=== PATIENT | male | born 1970 | race Caucasian/White ===

== ENCOUNTER → 2023-08-24 16:27 | Outpatient (REF) | payer OTHER, SELFPAY | LOC: RAD 16:27 | PROVIDERS: ATTENDING PHYSICIAN Family Medicine | DX: J45.40 Moderate persistent asthma, uncomplicated (principal) | CPT/HCPCS: 71250 ==

== ENCOUNTER → 2023-12-12 06:44 | Outpatient (REF) | payer OTHER, SELFPAY | LOC: RAD 06:44 | PROVIDERS: ATTENDING PHYSICIAN Family Medicine | DX: E78.00 Pure hypercholesterolemia, unspecified (principal) | CPT/HCPCS: 93880 ==

== ENCOUNTER → 2024-03-21 08:56 | Outpatient (REF) | payer OTHER, SELFPAY | LOC: RSP 08:56 | PROVIDERS: ATTENDING PHYSICIAN Internal Medicine Critical Care Medicine | DX: J45.30 Mild persistent asthma, uncomplicated (principal) | CPT/HCPCS: 94727; 94729; 88738; 94010 ==

== ENCOUNTER 2024-04-05 08:49 | Emergency (ER) | payer OTHER, SELFPAY ==
[2024-04-05 09:06] VITALS: BP 155/95
--- NOTE | 2024-04-05 09:51 | ED.GENMED ---
History of Present Illness
General
Chief Complaint: Fall
Source: patient
Time Seen by Provider: 04/05/24 09:17
History of Present Illness
History of Present Illness:
54-year-old male presenting to the emergency for evaluation of right wrist and foot injury stating that he was standing on a 2 foot ladder when he accidentally tripped falling onto the affected areas. Patient states the wrist is what is bothering
him most. Denies any head injury, loss consciousness or any other extremity related concerns. Patient is right-hand dominant.
Past History
Past History
ED Past Medical History: HTN and Hypercholesterolemia
ED Past Surgical History: Orthopedic
Social History
Tobacco: Non-smoker
Alcohol: None
Drug: None
Personal:
Living: with family
Employment: Employed
Review of Systems
Review of Systems
All Other Systems: ROS reviewed and negative except as documented in HPI and ROS
Phy Exam
Physical Exam
Physical Exam:
GENERAL: Alert , in no apparent distress
EYE: conjunctiva clear
Head: Normocephalic atraumatic
NECK: Supple,
ENT: mmm.
LUNGS: no acute respiratory distress
NEUROLOGICAL: Alert and oriented
SKIN: Warm and dry, skin intact.
MUSCULOSKELETAL: Right Hand/Wrist: STS over the dorsum of the hand with ttp over mid carpal bones. ROM limited 2/2 pain, easily palpable radial pulse. CR < 2 sec. Sensation grossly intact to light touch. Remainder of extremity is WNL. Right foot:
No obvious deformity. No focal areas of ttp
PSYCH: Normal and appropriate interaction.
Scores
Heart Failure Risk
Heart Failure Risk Score: Not Applicable
Heart Score for Chest Pain Patients
STEMI patient?: Not applicable
Withdrawal Assessment of Alcohol
Withdrawal Assessment Completed?: Not applicable
Course
Orders/Labs/Results
Orders:
Orders
04/05/24 09:10
Foot, Right 3 View [CR Foot - Right Min 3 Views] Urgent
Comment:
Reason For Exam: injury
Wrist, Right 3 Views [CR Wrist - Right Min 3 Views] Urgent
Comment:
Reason For Exam: injury
Vital Signs
Initial and Last Documented VS:
Initial Vital Signs
Temp Pulse Resp BP Pulse Ox
98.2 F 81 16 155/95 97
04/05/24 09:06 04/05/24 09:06 04/05/24 09:06 04/05/24 09:06 04/05/24 09:06
Last Documented Vital Signs
Temp Pulse Resp BP Pulse Ox
97.8 F 91 15 137/78 97
04/05/24 10:21 04/05/24 10:21 04/05/24 10:21 04/05/24 10:21 04/05/24 10:21
Procedures
Splinting/Sling Placement
Right Wrist:
Procedure completed by: Amrita
Pre-splint extermity exam: neurovascular intact
Type of splint: volar
Splint material: other (3in orthoglass)
Splint checked by provider?: Yes
Normal distal neurovascular exam?: Yes
MDM/Problems Addressed
Differential Diagnosis Includes:
sprain, contusion, fracture
MDM/Problems Addressed:
54-year-old male presenting to the ER for evaluation of right foot and wrist injuries. No other injuries sustained an accidental fall. X-rays were ordered from triage with the x-ray of the right wrist showing a fracture of a carpal bone.
Difficult to discern which carpal bone as the avulsive injury. Splint placed as above. Patient will require orthopedics follow-up. X-ray of the right foot does not show any acute fractures. There are couple ossifications that appear chronic.
NSAIDs/Tylenol as needed for pain. Information for orthopedic sided. Patient stable for discharge home.
*Radiology
Radiology exam reviewed: preliminary read by ED provider (carpal bone fracture right wrist, no fx foot)
*Pulse Oximetry
Patient hypoxic: no
*Critical Care Note
Total Time (30-74mins, 75-104mins- exclusive of procedures): Not Applicable
ED Attending Note
-
Portions of this chart may have been created with voice recognition software.� Occasional wrong word or��sound alike� substitutions may have occurred due to the inherent limitations of voice recognition software.
Discharge Plan
Departure
Patient Disposition: Home (Routine Discharge)
Date of Disposition: 04/05/24
Time of Disposition: 09:51
Patient with high blood pressure during this ER visit?: Yes
Discharge Problem:
Fracture of carpal bone of right wrist, Right foot sprain
Instructions: Common Wrist Injuries ED
Referrals:
Tarny Nunez I., DO [Active] - (Ortho - Please call for appointment)
Kathrin De Jesus MD [Family Provider] -
Interventions
Interventions:
*Risk Screen - Suicide Last Done: 04/05/24 09:06
*General Assessment Last Done: 04/05/24 09:06
*Neglect/Abuse Screening Last Done: 04/05/24 09:06
ED- Fall Risk Assessment Last Done: 04/05/24 10:21
*ED COVID-19 Vaccine History Last Done: 04/05/24 10:21
*Nursing Disposition Last Done: 04/05/24 10:21
ED-Musculoskeletal Assessment Last Done: 04/05/24 10:20
ED- Neurological Assessment Last Done: 04/05/24 10:20
ED-Skin Assessment Last Done: 04/05/24 10:20
Discharge Date and Time
Discharge Date/Time: 04/05/24 10:22
Print Language: ROMANIAN
[2024-04-05 10:21] VITALS: BP 137/78
== END 2024-04-05 10:22 | disposition home or self-care (01) ==
LOC: EMR 08:49
PROVIDERS: EMERGENCY PHYSICIAN Student in an Organized Health Care Education/Training Program; FAMILY PHYSICIAN Family Medicine
DX: S62.101A Fracture of unspecified carpal bone, right wrist, initial encounter for closed fracture (principal); S93.601A Unspecified sprain of right foot, initial encounter; W01.0XXA Fall on same level from slipping, tripping and stumbling without subsequent striking against object, initial encounter; I10 Essential (primary) hypertension; E78.00 Pure hypercholesterolemia, unspecified
CPT/HCPCS: 99283; 29125; 73110; 73630

== ENCOUNTER 2024-08-17 00:49 | Observation (INO) | payer OTHER, SELFPAY ==
[2024-08-16 16:16] VITALS: BP 145/101
[2024-08-16 16:38] LABS: % Basophils 0.3 % (0-2); % Eosinophils 0.2 % (0-6); % Immature Granulocytes 0.2 % (0-0.5); % Lymphocytes 11.1 % (20.5-51.1); % Monocytes 7.8 % (1.7-9.3); % Neutrophils 80.4 % (42.2-75.2); Absolute Lymphocytes 1.1 10^3/uL (1.2-3.4); Absolute Monocytes 0.8 10^3/uL (0.1-0.6); Hemoglobin 16.6 g/dL (13.0-18.0); Mean Corp Hgb Conc. 33.9 g/dL (33.0-37.0); Mean Corpuscular Hgb 28.3 pg (27.0-31.0); Mean Corpuscular Volume 83.5 fL (80.0-94.0); Mean Platelet Volume 9.8 fL (7.4-10.4); Nucleated Red Blood Cells % 0 % (-); Platelet Count 245 10^3/uL (130-400); Red Blood Cell Count 5.87 10^6/uL (4.70-6.10); Red Cell Dist. Width 13.1 % (11.5-14.5)
[2024-08-16 17:02] LABS: ALT (SGPT) 35 U/L (0-50); AST (SGOT) 33 U/L (17-59); Albumin 4.4 g/dl (3.5-5.0); Alkaline Phosphatase 70 U/L (38-126); Blood Urea Nitrogen 10 mg/dl (9-20); Calcium 9.2 mg/dl (8.4-10.2); Carbon Dioxide 30 mmol/L (22-30); Chloride 97 mmol/L (98-107); Glucose 140 mg/dl (70-99); Sodium 134 mmol/L (135-145); Total Bilirubin 0.9 mg/dl (0.2-1.3); Total Protein 6.8 g/dl (6.3-8.2); eGFR > 60.00
[2024-08-16 19:44] VITALS: BP 150/85
[2024-08-16 19:45] VITALS: BMI 40.8
[2024-08-16 20:00] VITALS: BP 137/89
--- NOTE | 2024-08-16 20:02 | ED.GENMED ---
History of Present Illness
General
Chief Complaint: Dizziness
Source: patient
Exam Limitations: none
Time Seen by Provider: 08/16/24 19:54
Nursing documentation reviewed up to this point in time: agreed with
History of Present Illness
History of Present Illness:
54-year-old male presents emergency department due to dizziness since yesterday. He notes the room is spinning and also has double vision. He has never had this before. He notices a fullness in his left ear and ringing.
Past History
Past History
ED Past Medical History: HTN and Hypercholesterolemia
ED Past Surgical History: Orthopedic (Left hand amputation, bilateral shoulder repair)
Social History
Tobacco: Non-smoker
Alcohol: None
Drug: None
Personal:
Living: with family
Employment: Employed
Review of Systems
Review of Systems
Allergies reviewed?: Yes
All Other Systems: Not applicable
Constitutional: Reports no symptoms
EENT: Reports no symptoms
Respiratory: Reports no symptoms
Cardiac: Reports no symptoms
ABD/GI: Reports vomiting
: Reports no symptoms
Musculoskeletal: Reports no symptoms
Skin: Reports no symptoms
Neurological: Reports dizzy
Endocrine: Reports no symptoms
Hematologic/Lymphatic: Reports no symptoms
Psychiatric: Reports no symptoms
Phy Exam
Physical Exam
Physical Exam:
Physical Exam
General: no apparent distress, not acutely ill
Neck: supple. no meningeal signs. normal posterior pharynx
Heart: s1/s2 regular rate and rhythm, no murmur. equal radial
pulses.
HEENT: Pupils equal round reactive to light, EOMI, rightward nystagmus
Lungs: no acute respiratory distress. clear bilaterally
Abdomen: normal bowel sounds. not tender. no CVAT
Neuro: alert and oriented. no focal neurological deficits cranial nerves II through XII intact
Skin: no rash
Psychiatric: well kept. interactive and cooperative
Extremities: no edema. no calf tenderness. negative homans. good distal pulses
Course
Orders/Labs/Results
Orders:
Orders
08/16/24 16:20
Electrocardiogram (*1) Urgent
Reason for Study: Vertigo / Dizzy
EKG- Treatment ONCE
08/16/24 16:29
Complete Blood Count/With Diff Urgent
Comprehensive Metabolic Panel Urgent
08/16/24 20:13
CT Head W/o Iv Contrast Urgent
Comment:
Reason For Exam: dizziness
08/16/24 20:17
Ondansetron Orally Disint [Zofran Odt (Orally Disintegrating)] 4 mg PO NOW STA
Abnormal Lab Results
08/16/24
16:29
Absolute Neuts (auto) 8.0 H 10^3/uL
(1.4-6.5)
Absolute Lymphs (auto) 1.1 L 10^3/uL
(1.2-3.4)
Absolute Monos (auto) 0.8 H 10^3/uL
(0.1-0.6)
Neutrophils % 80.4 H %
(42.2-75.2)
Lymphocytes % 11.1 L %
(20.5-51.1)
Sodium 134 L mmol/L
(135-145)
Chloride 97 L mmol/L
(98-107)
Glucose 140 H mg/dl
(70-99)
08/16/24 16:29
08/16/24 16:29
Vital Signs
Initial and Last Documented VS:
Initial Vital Signs
Temp Pulse Resp BP Pulse Ox
98.3 F 96 18 145/101 99
08/16/24 16:16 08/16/24 16:16 08/16/24 16:16 08/16/24 16:16 08/16/24 16:16
Last Documented Vital Signs
Temp Pulse Resp BP Pulse Ox
98.3 F 96 18 150/85 99
08/16/24 16:16 08/16/24 16:16 08/16/24 16:16 08/16/24 19:44 08/16/24 19:46
MDM/Problems Addressed
Differential Diagnosis Includes:
cva, intracranial hemorrhage, acoustic neuroma
MDM/Problems Addressed:
54 yo male with dizziness and double vision. Unclear etiology. Admit for further evaluation and workup.
Chronic conditions affecting care: HTN
*Radiology
Radiology exam reviewed: radiology read reviewed (CT head no acute findings)
*Pulse Oximetry
Patient hypoxic: no
*EKG
Interpreted by ED Provider?: Yes
EKG Intrepretation Date: 08/16/24
EKG Intrepretation Time: 16:25
Interpretation: normal
Comparison EKG: no comparison EKG present
Heart Rate: 92
Rate: normal
Rhythm: sinus
[place]: normal axis
Interval: normal interval
QRS Pattern: normal QRS
Ischemia: no ischemia
*Piece Work Inspector Interpretation
Rate: normal
Interpretation: normal
Heart Rate: 88
Rhythm: sinus
*Critical Care Note
Total Time (30-74mins, 75-104mins- exclusive of procedures): Not Applicable
Patient Management
Social determinants of health affecting care: Living situation and Strong social support
Discussion with other providers: Hospitalist
Escalation/DeEscalation of care consider admission/obs:
Admit indicated
ED Attending Note
-
Portions of this chart may have been created with voice recognition software.� Occasional wrong word or��sound alike� substitutions may have occurred due to the inherent limitations of voice recognition software.
Discharge Plan
Departure
Patient Disposition: Admit
Date of Disposition: 08/16/24
Time of Disposition: 22:57
Admit to: Telemetry
Presentation/result/management discussed w/ accepting MD/DO: Hospitalist
Patient with high blood pressure during this ER visit?: Yes
Condition: Good
Discharge Problem:
Dizziness, Diplopia
Referrals:
Kathrin De Jesus MD [Family Provider] -
Interventions
Interventions:
*General Assessment Last Done: 08/16/24 19:46
*Neglect/Abuse Screening Last Done: 08/16/24 19:46
*ED- Fall Risk Assessment Last Done: 08/16/24 19:46
*ED COVID-19 Vaccine History Last Done: 08/16/24 19:46
ED- Neurological Assessment Last Done: 08/16/24 19:46
ED- Cardiac Assessment Last Done: 08/16/24 19:46
ED Swallowing Screen Last Done: 08/16/24 19:46
Discharge Date and Time
Print Language: HONDURAN
[2024-08-16] MEDS: ZOFRAN ODT (ORALLY DISINTEGRATING) 4 MG PO (20:29)
[2024-08-16 21:00] VITALS: BP 139/88
[2024-08-16 22:00] VITALS: BP 145/84
[2024-08-16 23:00] VITALS: BP 133/78
[2024-08-17] VITALS: BP 151/84
--- NOTE | 2024-08-17 00:12 | HPS.HSE ---
Family Physician
-
Family Physician: Kathrin De Jesus
Chief Complaint
-
Dizziness
History of Present Illness
This is a 54-year-old with past medical history hypertension, hyperlipidemia, presenting to the emergency department with 1 day history of dizziness.
Patient reported that to previous evening he had a tinnitus in the left ear, sinus congestion and some postnasal drip. He also had a fullness in the head. This is not unusual for him but seems to be more severe than typical. He denies fevers or
chills. 10 on the day of admission to the hospital started with signs of vertigo which he describes as walking while drunk. It is worse with movement of standing. It is improved with staying still. He had double vision. He denied any numbness
tingling. He denies any focal weakness. He denies any facial asymmetry or speech difficulty.
At the time of my interview in the emergency department the sensation of double vision had diminished significantly. He still reports having vertigo with movement. He still reports some ear fullness and some nausea.
In the ED he was afebrile, blood pressure was 130/78 with a pulse of 96 and was satting 95% on room air. ECG shows a normal sinus rhythm. CT of the head was negative for any acute interval changes. CBC was completely unremarkable. Electrolytes
notable for sodium of 134 but otherwise unremarkable abnormal BUN and creatinine.
Medical History
Past Medical History
Past Medical History: Reports Asthma, HTN and Hypercholesterolemia
Past Surgical History: Reports Orthopedic (Rotator cuff repair bilaterally), Tonsilectomy and Other (Left and amputation)
Additional Past Surgical History:
Surgery for nasal polyps
Social History
Tobacco: Non-smoker
Alcohol: Occasional
Drug: None
Personal:
Living: With Family
Employment: Employed
Family History
Family History: Not pertinent
Allergies / Home Medications
Allergies reflects when Allergies were last updated in [facility]
Home Medications with original date entered in [facility]
Allergy/Medication List:
Allergies
Allergy/AdvReac Type Severity Reaction Status Date / Time
aspirin Allergy Unknown Unknown Verified 04/05/24 09:03
Home Medications
Lactobac no.2-Bifidobac no.1-S. thermo 112.5 billion cell capsule (Visbiome) 1 cap PO DAILY 08/16/24
albuterol sulfate 90 mcg/actuation aerosol inhaler 2 puff inhalation R Q6HPRN PRN sob 08/16/24
ascorbic acid (vitamin C) 500 mg tablet (Vitamin C) 500 mg PO DAILY 08/16/24
cyanocobalamin (vitamin B-12) 1,000 mcg tablet 1,000 mcg PO DAILY 08/16/24
losartan 25 mg tablet 25 mg PO QPM 08/16/24
oxycodone-acetaminophen 5 mg-325 mg tablet 1 tab PO Q6HPRN PRN severe pain 08/16/24
psyllium husk 3.4 gram/5.4 gram oral powder (Metamucil) 1 tbsp PO DAILY 08/16/24
rosuvastatin 5 mg tablet 5 mg PO DAILY 08/16/24
testosterone cypionate 200 mg/mL intramuscular oil 100 mg IM MOTH 08/16/24
tetrahydrozoline 0.05 % eye drops (Visine) 1 drp BOTH EYES DAILY 08/16/24
therapeutic multivitamin 1 tab PO DAILY 08/16/24
Review of Systems
-
History Source: Patient
Constitutional: Reports No Symptoms
EENT: Reports No Symptoms
Respiratory: Reports No Symptoms
Cardiac: Reports No Symptoms
Abdomen/GI: Reports No Symptoms
: Reports No Symptoms
Musculoskeletal: Reports No Symptoms
Skin: Reports No Symptoms
Neurological: Reports No Symptoms
Endocrine: Reports No Symptoms
Hematologic/Lymphatic: Reports No Symptoms
Psych: Reports No Symptoms
Physical Exam
Vital Signs
Vital Signs
Temp Pulse Resp BP Pulse Ox
98.3 F 96 18 133/78 98
08/16/24 16:16 08/16/24 16:16 08/16/24 16:16 08/16/24 23:00 08/16/24 23:00
Physical Exam
General: Well Developed, Well Nourished, No Apparent Distress and Comfortable
HEENT: NormoCephalic, Anicteric, Moist mucous membranes and Atraumatic
Respiratory: Clear
Cardiac: S1/S2 and Regular Rhythm
Breast: Deferred by me
GI: Soft, Non Tender, Non Distended and Normal Bowel Sounds
Rectal: Deferred by Provider
Genito-urinary: Deferred by me
Musculoskeletal: No Clubbing, No Cyanosis and No Edema
Neuro: AO x 3 and Nonfocal/grossly intact; No Slurred Speech, Facial Droop or Tremors
Hematologic/Lymphatic: No Lymphadenopathy
Psych: Calm
Laboratory Results
-
08/16/24 16:29
08/16/24 16:29
Laboratory Results
Total Bilirubin 0.9 mg/dl (0.2-1.3) 08/16/24 16:29
AST 33 U/L (17-59) 08/16/24 16:29
ALT 35 U/L (0-50) 08/16/24 16:29
Alkaline Phosphatase 70 U/L (38-126) 08/16/24 16:29
Data Reviewed
-
CT Scan: Report Reviewed by me
Medical Tests (Nuc Med, Echo, EKG etc): Image Personally Visualized and interpreted
Lab Data: Labs Reviewed by me
Old Records: Reviewed
Impression/Plan
-
IMPRESSION:
54-year-old with history of hyperlipidemia, hypertension presenting to the emergency department with a 1 day history of vertigo which she describes as dizziness. He has no lightheadedness. He has no other focal logical deficits. He does report
tinnitus in 1 year with associated ear fullness and recent episodes of on nasal congestion and some postnasal drip. No headache. No prior history of TIA or CVA. Head CT negative. ECG unremarkable.
PLAN:
Dizziness -suspect peripheral vertigo. The double vision has resolved. However continues to have some dizziness with movement that improves with rest. It is not paroxysmal. There is associated tinnitus. Suspect acoustic/vestibular neuritis.
Cannot rule out CVA at this time.
- admit to tele/obs
- mri with xanax in am
- symptomatic treatment with meclizine for now
- prn zofran for nausea
- pain control
- lipid panel and a1c in am
DVT PPX - SCDs
Code status - Full Code
[2024-08-17] MEDS: ZOFRAN ODT (ORALLY DISINTEGRATING) 4 MG PO (00:47)
[2024-08-17 02:20] VITALS: BP 146/96
[2024-08-17 02:21] VITALS: BMI 40.8
[2024-08-17 02:22] VITALS: BP 143/97; BP 143/99; BP 146/96; PULSE 109; PULSE 89; PULSE 90
[2024-08-17] MEDS: CRESTOR 5 MG PO (07:43)
[2024-08-17 07:49] LABS: HDL Cholesterol 46 mg/dl; LDL Cholesterol, Calculated 82 mg/dl; Total Cholesterol 154 mg/dl (50-199); Triglyceride 133 mg/dl (10-149); Very Low Density Lipoprotein 26 mg/dl (0-30)
[2024-08-17 07:56] VITALS: BP 158/98
[2024-08-17 09:26] LABS: Glycohemoglobin (HgbA1c) 5.9 % (4.0-5.6)
[2024-08-17] MEDS: XANAX 1 MG PO (10:21)
[2024-08-17 11:26] VITALS: BP 137/114; BP 156/98; BP 161/103; PULSE 105; PULSE 112; PULSE 98
--- NOTE | 2024-08-17 11:45 | CON.NEURO ---
Neuro Assessment/Plan
Assessment
by history this would be labyrinthitis of the left ear
exam is normal as his symptoms are resolved
patient and I decided that he doesn't really need an MRI as the yield would be low
he can be discharged home no rx as he is all better
Consultation
Order
Date of Consultation: 08/17/24
Requesting Provider: Yosef Briceño
Reason for Consult: Dizziness
Subjective/Objective
Subjective Data
Date of Service: August 17, 2024
54 year old right handed man, presenting dizziness, felt like he was drunk. Symptoms became disabling yesterday around noon yesterday, though were mild the night before. there was associated tinnitus left ear much more severe than his baseline,
transient diplopia, and nausea. no weakness/numbness, no speech changes or facial droop
today symptoms are resolved. He is back to baseline. He tried to get MRI with ativan 1mg but claustrophobic, couldn't tolerate
Objective Data
Vital Signs
Temp Pulse Resp BP Pulse Ox
36.8 C 98 16 156/98 98
08/17/24 11:26 08/17/24 11:26 08/17/24 11:26 08/17/24 11:26 08/17/24 11:26
Lab Results
08/16/24 16:29
08/16/24 16:29
Sodium 134 mmol/L (135-145) L 08/16/24 16:29
Potassium 4.0 mmol/L (3.5-5.1) 08/16/24 16:29
BUN 10 mg/dl (9-20) 08/16/24 16:29
Glucose 140 mg/dl (70-99) H 08/16/24 16:29
Calcium 9.2 mg/dl (8.4-10.2) 08/16/24 16:29
LDL Cholesterol, Calc 82 mg/dl 08/17/24 07:03
Patient Allergies
aspirin Allergy (Unknown, Verified 04/05/24 09:03)
Unknown
Physical Exam
-
AAOx3, speech clear, language intact
VFF, EOMI, no nystagmus with gaze fixation removed; no skew deviation face symmetric
[place] hallpike neg
full strength b/l UE/LE, left hand 4 fingers traumatically amputated
sensation intact touch/vib
DTR normal and symmetric
Medications
-
Active Medications
Generic Name Dose Route Start Last Admin
Trade Name Freq PRN Reason Stop Dose Admin
Acetaminophen 650 mg 08/17/24 01:56
Acetaminophen 325 Mg Tablet PO 09/14/24 01:55
Q4HPRN PRN
mild pain/GONZALEZ/temp> 100.4F
Albuterol 2 puff 08/17/24 01:56
Albuterol Hfa [90 Mcg/Dose] Inhaler INH
R Q6HPRN PRN
sob
Protocol
Alprazolam 1 mg 08/17/24 01:56 08/17/24 10:21
Alprazolam 1 Mg Tablet PO 09/14/24 01:55 1 mg
PROCEDURE-PRN PRN Administration
for MRI brain
Losartan Potassium 25 mg 08/17/24 18:00
Losartan 25 Mg Tablet PO 09/14/24 17:59
QPM MEERA
Meclizine HCl 25 mg 08/17/24 01:56
Meclizine 25 Mg Tablet PO 09/14/24 01:55
Q8HPRN PRN
vertigo
Ondansetron HCl 4 mg 08/17/24 01:56
Ondansetron 4 Mg (Orally-Disintegrating) Tablet PO 09/14/24 01:55
Q8HPRN PRN
nausea/vomiting
Oxycodone/Acetaminophen 1 tablet 08/17/24 01:56
Oxycodone 5 Mg/Apap 325 Mg (Percocet) PO 08/31/24 01:55
Q6HPRN PRN
severe pain
Rosuvastatin Calcium 5 mg 08/17/24 08:00 08/17/24 07:43
Rosuvastatin (Crestor) 5 Mg Tablet PO 09/14/24 07:59 5 mg
DAILY MEERA Administration
Sodium Chloride 0 flush 08/17/24 03:00
Sodium Chloride 0.9% (Flush) Syringe IV 09/14/24 02:59
PER PROTOCOL MEERA
Home Medications
�Medication �Instructions �Recorded
Lactobac no.2-Bifidobac no.1-S. 1 cap PO DAILY 08/16/24
thermo 112.5 billion cell capsule
(Visbiome)
albuterol sulfate 90 mcg/actuation 2 puff inhalation R Q6HPRN PRN sob 08/16/24
aerosol inhaler
ascorbic acid (vitamin C) 500 mg 500 mg PO DAILY 08/16/24
tablet (Vitamin C)
cyanocobalamin (vitamin B-12) 1,000 mcg PO DAILY 08/16/24
1,000 mcg tablet
losartan 25 mg tablet 25 mg PO QPM 08/16/24
oxycodone-acetaminophen 5 mg-325 1 tab PO Q6HPRN PRN severe pain 08/16/24
mg tablet
psyllium husk 3.4 gram/5.4 gram 1 tbsp PO DAILY 08/16/24
oral powder (Metamucil)
rosuvastatin 5 mg tablet 5 mg PO DAILY 08/16/24
testosterone cypionate 200 mg/mL 100 mg IM MOTH 08/16/24
intramuscular oil
tetrahydrozoline 0.05 % eye drops 1 drp BOTH EYES DAILY 08/16/24
(Visine)
therapeutic multivitamin 1 tab PO DAILY 08/16/24
--- NOTE | 2024-08-17 12:19 | W.DCSUMMARY ---
Discharge Summary
Discharge Data
Date of Admission: 08/17/24
Date of Discharge: 08/17/24
-
Pending Results: No
Hospital Course
54-year-old with past medical history hypertension, hyperlipidemia
Presented with dizziness associated diplopia. Initial imaging without evidence of acute CVA. Attempted MRI however unable to complete due to claustrophobia. Evaluated by neurology, symptomatology resolved, believed this is likely secondary to
labyrinthitis. Symptomatology has resolved no indication for any additional treatments such as steroids.
CTBrain
IMPRESSION:
No evidence of acute intracranial abnormality.
Seen and examined on the day of discharge. No new complaints. No acute overnight events
Notified by neuro and nursing staff that he has been cleared for discharge
Complete symptoms resolution
Apologized for not being able to get the MRI completed
NAD
Scleral Anicteric
MMM
No JVD
CTABL
RRR, S1/S2
Soft, NT, ND, BS+
Warm, Dry
AAOx3
Calm
More than 30 minutes spent in discharge including
Final examination of the patient
Summarizing hospital stay
Instructions for continuing care to all relevant caregivers
Preparation of discharge records, prescriptions, and referral forms
Total time spent (in minutes): 32mins
Discharge Plan
-
Patient Disposition: Home (Routine Discharge)
Discharge Diagnosis/Procedures: Labyrinthitis
Condition: Good
Diet: As tolerated
Activity: As tolerated
Activity Restrictions/Additional Instructions:
Presented with dizziness associated diplopia. Initial imaging without evidence of acute CVA. Attempted MRI however unable to complete due to claustrophobia. Evaluated by neurology, symptomatology resolved, believed this is likely secondary to
labyrinthitis. Symptomatology has resolved no indication for any additional treatments such as steroids.
CTBrain
IMPRESSION:
No evidence of acute intracranial abnormality.
Referrals:
Kathrin De Jesus MD [Family Provider] -
Prescriptions:
New
meclizine 25 mg Tablet
25 mg PO Q8HPRN PRN (Reason: vertigo) Qty: 14 0RF
Continued
cyanocobalamin (vitamin B-12) 1,000 mcg Tablet
1,000 mcg PO DAILY
tetrahydrozoline [Visine] 0.05 % Drops
1 drp BOTH EYES DAILY
therapeutic multivitamin Tablet
1 tab PO DAILY
oxycodone-acetaminophen 5-325 mg Tablet
1 tab PO Q6HPRN PRN (Reason: severe pain)
ascorbic acid (vitamin C) [Vitamin C] 500 mg Tablet
500 mg PO DAILY
losartan 25 mg Tablet
25 mg PO QPM
testosterone cypionate 200 mg/mL Oil
100 mg IM MOTH
albuterol sulfate 90 mcg/actuation Hfa Aerosol Inhaler
2 puff INHALATION R Q6HPRN PRN (Reason: sob)
rosuvastatin 5 mg Tablet
5 mg PO DAILY
Visbiome 112.5 billion cell Capsule
1 cap PO DAILY
Metamucil 3.4 gram/5.4 gram Powder
1 tbsp PO DAILY
Discharge Orders:
Discharge Patient (As Directed); Ordered 08/17/24
Ordered By: Yosef Briceño
Discharge Date and Time
Print Language: MAURITANIAN
--- NOTE | 2024-08-17 13:17 | CM ---
CM following re: discharge planning.
Reviewed pt's chart, met with pt.
Pt is a 54 year old male, admitted with OBS status and primary dx of Dizziness. OBS status explained to the pt, OBS letter signed, placed on chart, pt has a copy
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
Discharge order noted. Pt is aware and he stated his spouse will transport home.
D/C plan: home no needs. Spouse to transport.
== END 2024-08-17 12:36 | disposition home or self-care (01) ==
LOC: 1 ACUTE 00:49
PROVIDERS: Emergency Medicine; ADMITTING PHYSICIAN Internal Medicine; ATTENDING PHYSICIAN Hospitalist; CONSULT PHYSICIAN Psychiatry & Neurology Clinical Neurophysiology; EMERGENCY PHYSICIAN Emergency Medicine; FAMILY PHYSICIAN Family Medicine
DX: H83.02 Labyrinthitis, left ear (principal); R42 Dizziness and giddiness; H53.2 Diplopia; H93.12 Tinnitus, left ear; I10 Essential (primary) hypertension
CPT/HCPCS: 70450; 80053; 80061; 83036; 85025; 93005; 99285; G0378